=== PATIENT | male | born 1970 | race Caucasian/White ===

== ENCOUNTER 2020-10-27 18:43 | Emergency (ER) | payer OTHER ==
[~2020-10-27 18:43] MED LIST: IBUPROFEN600 MG PO; IBUPROFEN800 MG PO; PENVEE K 500 M500 MG PO; WELLBUTRIN SR150 M1 PO
[2020-10-27] MEDS ORDERED: MOBIC15 MG PO (20:19)
[2020-10-27] MEDS ORDERED: CYCLOBENZAPRINE10 MG PO (20:19)
== END 2020-10-27 20:35 | disposition home or self-care (01) ==
LOC: ER1 18:43
DX: G89.29 Other chronic pain (principal); M54.5 Low back pain; F17.210 Nicotine dependence, cigarettes, uncomplicated
CPT/HCPCS: 96372; 99283; J1885; J2360

== ENCOUNTER 2021-04-13 15:02 | Emergency (ER) | payer OTHER ==
[~2021-04-13] VITALS: Ht 182.9 cm; Wt 113.4 kg
[~2021-04-13 15:02] MED LIST changes: +CYCLOBENZAPRINE10 MG PO; +MOBIC15 MG PO
[2021-04-13 16:13] LABS: HEMOGLOBIN 16.1 gm/dl (14.0-17.5); RED BLOOD COUNT 4.91 M/UL (4.20-5.50); WHITE BLOOD COUNT 17.7 K/UL (4.5-11.0)
[2021-04-13 16:54] LABS: BUN/CREATININE RATIO 14 (0-10)
[2021-04-13] MEDS ORDERED: PROVENTIL HFA6.7 GM INH (18:56)
[2021-04-13] MEDS ORDERED: DOXYCYCLINE HY100 MG PO (18:56)
== END 2021-04-13 19:55 | disposition home or self-care (01) ==
LOC: ER1 15:02
PROVIDERS: Emergency Medicine
DX: J18.9 Pneumonia, unspecified organism (principal); Z20.822 Contact with and (suspected) exposure to COVID-19; E78.5 Hyperlipidemia, unspecified; I10 Essential (primary) hypertension; F17.200 Nicotine dependence, unspecified, uncomplicated
CPT/HCPCS: 36600; 71045; 80053; 81001; 82550; 82553; 82803; 83605; 83874; 84484; 85025; 85379; 87040; 93005; 94664; 96374; 99284; J0696; J7030; Q9967; U0002

== ENCOUNTER → 2021-09-08 | Outpatient (CLI) | payer OTHER ==
[~2021-09-08] MED LIST changes: +DOXYCYCLINE HY100 MG PO; +PROVENTIL HFA6.7 GM INH
== END ==
LOC: KOH-I 16:12
DX: S89.92XA Unspecified injury of left lower leg, initial encounter (principal); X58.XXXA Exposure to other specified factors, initial encounter
CPT/HCPCS: 73590